=== PATIENT | male | born 1995 | race Two or more races ===

== ENCOUNTER 2022-08-10 20:21 | Emergency (ER) | payer OTHER ==
[~2022-08-10] VITALS: Ht 185.4 cm; Wt 79.4 kg
[2022-08-12] MEDS ORDERED: CIPRO500 MG PO (23:30)
[2022-08-12] MEDS ORDERED: PEPCID AC20 MG PO (23:30)
[2022-08-12] MEDS ORDERED: ZOFRAN8 MG PO (23:30)
== END 2022-08-11 05:39 | disposition home or self-care (01) ==
LOC: ER 20:21
DX: R10.9 Unspecified abdominal pain (principal); Z87.19 Personal history of other diseases of the digestive system

== ENCOUNTER 2022-10-16 12:19 | Inpatient (IN) | payer OTHER ==
[~2022-10-16] VITALS: Ht 177.8 cm; Wt 81.6 kg
[~2022-10-16 12:19] MED LIST: CIPRO500 MG PO; PEPCID AC20 MG PO; ZOFRAN8 MG PO
--- NOTE | 2022-10-16 12:24 | NUR ---
SE RECIBE PTE ALERTA Y ORIENTADO PTE REFIERE DOLOR ABDOMINAL JUAN,VOMITOS Y DIARREAS, PTE REFIERE QUE LLEVA 3 BLAND CON LOS MISMO S[place]OM[place]. SE DARRON VITALES Y SE SHANNON EN OBSERVACION.
--- NOTE | 2022-10-16 13:23 | NUR ---
PTE EVALAUDA POR DR. RASCON SE JECUTA ORDEN EN [place] TOTALIDAD, SE DARRON MUESTRA BAJO MEDIAS ASEPTICAS Y SE ORIENTA APTE SOBRE LA INTERVECION PTE REFIER E ENTENDER
--- NOTE | 2022-10-16 13:40 | NUR ---
1330- SE REALIZAN MUESTRAS EN KRISTIE CBC, CMP, AMILASA Y LIPASA EN ANTEBRAZO AKOSUA BAJO MEDIDAS ASEPTICAS. SE CANALIZA EN ANTEBRAZO DERECHO ANGIO 20 BAJO MEDIDAS ASEPTICAS. SE ADMINISTRA ZOFRAN 8 MG IV, TORADOL 30 MG IV, PEPCID 20 MG IV. SE COLOCA 0.9 NSS 1,000 ML A 200 ML/HR.
[2022-10-18] MEDS ORDERED: LEVSIN/SL0.125 MG SL (08:18)
[2022-10-18] MEDS ORDERED: CIPRO500 MG PO (08:18)
[2022-10-18] MEDS ORDERED: NASAL MIST126 ML NASAL (08:18)
[2022-10-18] MEDS ORDERED: PEPCID AC20 MG PO (08:18)
== END 2022-10-19 10:47 | disposition home or self-care (01) | DRG 392 ==
LOC: ER 12:19 → SEC-K 22:36 → MEDI 22:36
PROVIDERS: ADMIT Internal Medicine; ATTEND Internal Medicine
PROC: BW21ZZZ Computerized Tomography (CT Scan) of Abdomen and Pelvis (ICD-10-PCS; principal; 2022-10-16)
DX: K52.89 Other specified noninfective gastroenteritis and colitis (principal); E86.0 Dehydration; N34.2 Other urethritis; F12.90 Cannabis use, unspecified, uncomplicated; Z20.822 Contact with and (suspected) exposure to COVID-19

== ENCOUNTER 2022-12-28 10:33 | Emergency (ER) | payer OTHER ==
[~2022-12-28] VITALS: Ht 180.3 cm; Wt 77.1 kg
[~2022-12-28 10:33] MED LIST changes: +LEVSIN/SL0.125 MG SL; +NASAL MIST126 ML NASAL
== END 2022-12-28 14:04 | disposition home or self-care (01) ==
LOC: ER 10:33
DX: K25.9 Gastric ulcer, unspecified as acute or chronic, without hemorrhage or perforation (principal); Z87.19 Personal history of other diseases of the digestive system